=== PATIENT | male | born 1990 | race Caucasian/White ===

== ENCOUNTER 2019-01-23 19:52 | Emergency (ER) | payer OTHER ==
[~2019-01-23] VITALS: Ht 170.2 cm; Wt 59.1 kg
[2019-01-23] MEDS: FLUORESCEIN OPHTH 1 MG STRIP OS ONE (21:54)
[2019-01-23] MEDS ORDERED: ERYT1OIN26 OS ×2 (22:22→22:50)
[2019-01-23 22:42] VITALS: BP 128/69
[2019-01-23] MEDS: ERYTHROMYCIN OPHTH OINT OS ONE (22:50)
== END 2019-01-23 22:55 | disposition home or self-care (01) ==
LOC: M ED 19:52
DX: S05.02XA Injury of conjunctiva and corneal abrasion without foreign body, left eye, initial encounter (principal); X58.XXXA Exposure to other specified factors, initial encounter; Y92.89 Other specified places as the place of occurrence of the external cause

== ENCOUNTER → 2019-04-15 | Outpatient (REF) | payer OTHER ==
[~2019-04-15] MED LIST: ERYT1OIN26 OS
[2019-04-15 14:20] LABS: RHEUMATOID FACTOR QUANT < 10.0 IU/ML (<15.0)
[2019-04-15 14:32] LABS: VITAMIN B12 LEVEL 474 PG/ML
[2019-04-15 14:48] LABS: FOLATE 14.3 NG/ML
== END ==
LOC: M LABNEURO 11:30
PROVIDERS: ATTEND Psychiatry & Neurology Neurology
DX: H53.9 Unspecified visual disturbance (principal)

== ENCOUNTER → 2019-05-05 | Outpatient (REF) | payer OTHER | LOC: M LABNEURO 12:57 | PROVIDERS: ATTEND Psychiatry & Neurology Neurology | DX: H53.30 Unspecified disorder of binocular vision (principal) ==